=== PATIENT | male | born 1960 | race Caucasian/White ===

== ENCOUNTER 2017-07-10 19:11 | Inpatient (IN) | payer OTHER ==
[~2017-07-10] VITALS: Ht 167.6 cm; Wt 90.9 kg
[~2017-07-10 19:11] MED LIST: AMLO5TAB4 PO; GLIP5TAB13 PO; Metoprolol Tartrate PO; PRAV20TA5 PO
--- NOTE | 2017-07-10 19:20 | NUR ---
PT. AMBULATES TO ER BED 12
[2017-07-10 19:22] VITALS: BP 162/74
--- NOTE | 2017-07-10 19:54 | NUR ---
Patient being evaluated by at bedside.
--- NOTE | 2017-07-10 19:59 | NUR ---
57Y/M PT. PRESENTS TO ED WITH C/O ABDOMINAL PAIN X1 DAY. PT. STATES PAIN START TODAY AT EPIGASTRIUM, RADIATES TO BACK, NO N/V/D. HX. ESRD ON HD, HTN, DM, HIGH CHOLESTEROL. AAO X4, AMBULATORY WITH STEADY GAIT. RESPIRATIONS ROOM AIR, EVEN AND UNLABORED. SKIN WARM AND DRY, LT. FA AV FISTULA, ARCH CATH TO RT. JUGULAR VAIN. ABDOMEN FIRM, FLAT, HYPOACTIVE BS X4, C/O PAIN 06/11. VSS, ER MADE AWARE OF PT. STATUS.
[2017-07-10] MEDS ORDERED: NACL 0.9% 500 ML IV ONE (20:13)
[2017-07-10] MEDS ORDERED: KETOROLAC 30 MG/ML VIAL IVP ONE (20:15)
[2017-07-10] MEDS ORDERED: ONDANSETRON 4 MG/2 ML VIAL IVP ONE (20:15)
[2017-07-10 20:46] LABS: BASOPHILS # (AUTO) 0.1 K/uL (0.00-0.22); BASOPHILS % (AUTO) 1.1 % (0.0-2.0); EOSINOPHILS # (AUTO) 0.2 K/uL (0-0.4); EOSINOPHILS % (AUTO) 1.6 % (0.0-4.0); HEMATOCRIT 39.2 % (36-52); HEMOGLOBIN 13.2 g/dL (12.0-18.0); LYMPHOCYTES # (AUTO) 1.2 K/uL (2.0-11.5); LYMPHOCYTES % (AUTO) 10.9 % (20.5-51.1); MEAN CORPUSCULAR HEMOGLOBIN 31 pg (27-31); MEAN CORPUSCULAR HGB CONC 34 g/dL (33-37); MEAN CORPUSCULAR VOLUME 93 fL (80-94); MONOCYTES # (AUTO) 1.3 K/uL (0.8-1.0); MONOCYTES % (AUTO) 12.3 % (1.7-9.3); NEUTROPHILS # (AUTO) 8.1 K/uL (1.8-7.7); NEUTROPHILS % (AUTO) 74.1 % (42.2-75.2); PLATELET COUNT (AUTO) 181 K/uL (140-450); RED BLOOD CELL COUNT(AUTO) 4.24 MIL/uL (4.20-6.10); RED CELL DISTRIBUTION WIDTH 12.1 % (11.6-13.7); WHITE BLOOD COUNT (AUTO) 10.9 K/uL (4.8-10.8)
[2017-07-10] MEDS ORDERED: MORPHINE SULFATE 2 MG/ML SYR IVP ONE (21:05)
[2017-07-10 21:08] LABS: PROTHROMBIN TIME 10.5 secs (10.8-13.4)
[2017-07-10 21:14] LABS: ALBUMIN 4.2 g/dL (3.4-5.0); ANION GAP 17.6 (8-16); CARBON DIOXIDE 27.9 mmol/L (21-32); POTASSIUM 4.5 mmol/L (3.5-5.1); TOTAL BILIRUBIN 0.7 mg/dL (0.0-1.0)
[2017-07-10 21:16] LABS: CREATININE 12.2 mg/dL (0.7-1.3)
[2017-07-10] MEDS ORDERED: MORPHINE SULFATE 4 MG/ML SYR ONE (21:17)
[2017-07-10] MEDS ORDERED: PANTOPRAZOLE 40 MG INJ VIAL IVP ONE (21:20)
--- NOTE | 2017-07-10 21:41 | NUR ---
Patient appears to be resting comfortably in bed. Vital Signs within normal limits. Respirations even and unlabored.
[2017-07-10] MEDS ORDERED: ACETAMINOPHEN 325 MG TAB PO PRN (23:10)
[2017-07-10] MEDS ORDERED: ONDANSETRON 4 MG/2 ML VIAL IVP PRN (23:10)
[2017-07-10] MEDS ORDERED: MORPHINE SULFATE 4 MG/ML SYR IVP PRN (23:15)
[2017-07-10] MEDS ORDERED: DEXTROSE 50% 50 ML SYR IVP PRN (23:25)
[2017-07-10] MEDS ORDERED: INSULIN LISPRO SLIDING SCALE 100 UNITS/ML VIAL SUBQ PRN (23:25)
[2017-07-10 23:31] LABS: BARBITURATE, URINE NEG. ng/ml (NEG <=200); BENZODIAZEPINE, URINE NEG. ng/mL (NEG <=200); CANNABINOID, URINE NEG. ng/mL (NEG <=50); COCAINE, URINE NEG. ng/mL (NEG <=300); OPIATE, URINE NEG. ng/mL (NEG <=2000); PHENCYCLIDINE SCREEN,URINE NEG. ng/mL (NEG <=25)
[2017-07-10 23:38] LABS: FREE T4 (FREE THYROXINE) 1.02 ng/dL (0.76-1.46); MAGNESIUM 2.4 mg/dL (1.8-2.4); PHOSPHORUS 4.3 mg/dL (2.5-4.9); THYROID STIMULATING HORMONE 3.12 uIU/mL (0.34-3.74)
--- NOTE | 2017-07-10 23:38 | NUR ---
Patient will be admitted to care of . Admited to TELEMETRY. Will go to [id number]. Belongings list completed. Report to MARAL GONZALES.
[2017-07-10 23:40] VITALS: BP 117/72
--- NOTE | 2017-07-10 23:40 | NUR ---
Admitted from ER TO TELEMETRY UNIT, with chief complaint of EPIGASTRIC PAIN, 57 y/o ,Male, Cooperative, AWAKE, A/OX4, RESPIRATION EVEN AND UNLABORED. IV SALINE LOCK AT THE RIGHT FOREARM G18, PATENT AND INTACT, WITH DIALYSIS ACCESS RIGHT SUBCLAVIAN TUNNEL CATH AND LEFT FOREARM AV SHUNT WHICH IS NOT YET USE FOR DIALYSIS. STATED HE HAD EPIGASTRIC PAIN 7/10 DURING DIALYSIS AT [facility] TODAY, DIALYSIS NOT FINISHED BUT 1 LITER WAS OBTAINED. HEAD TO TOE ASSESSMENT DONE WITH CHARGE NURSE VALERIO, SKIN INTACT. PAIN IN THE ABDOMEN DESCRIBED "ONLY LITTLE" 1/10, WILL CALL NURSE WHEN PAIN INCREASES. oriented to call light, bed, phone,television, bathroom, smoking policy, visiting hours, procedures, ID bracelet on. Belongings list checked.
[2017-07-11] VITALS: BP 118/69
--- NOTE | 2017-07-11 | NUR ---
Patient's Plan of Care was discussed and reviewed with BRUSH WASHER: JANET BACA
[2017-07-11] MEDS ORDERED: MORPHINE SULFATE 4 MG/ML SYR IVP PRN (02:30)
[2017-07-11 04:30] VITALS: BP 113/74
[2017-07-11] MEDS: BLOOD GLUCOSE MONITORING 1 DEV DEV FS SCH ×4 (05:52→20:20)
[2017-07-11] MEDS ORDERED: DEXT 5% / NACL 0.45% 1,000 ML IV SCH (06:20)
[2017-07-11] MEDS: glipiZIDE 5 MG TAB PO SCH (06:23)
[2017-07-11] MEDS: HYDROcodone/APAP 7.5/325 MG 1 TAB PO PRN ×2 (06:27→20:22)
[2017-07-11 06:52] LABS: BASOPHILS # (AUTO) 0.1 K/uL (0.00-0.22); BASOPHILS % (AUTO) 0.6 % (0.0-2.0); EOSINOPHILS # (AUTO) 0.1 K/uL (0-0.4); EOSINOPHILS % (AUTO) 1.7 % (0.0-4.0); HEMATOCRIT 34.8 % (36-52); HEMOGLOBIN 11.9 g/dL (12.0-18.0); LYMPHOCYTES % (AUTO) 11.9 % (20.5-51.1); MEAN CORPUSCULAR HEMOGLOBIN 32 pg (27-31); MEAN CORPUSCULAR HGB CONC 34 g/dL (33-37); MEAN CORPUSCULAR VOLUME 94 fL (80-94); MONOCYTES # (AUTO) 0.9 K/uL (0.8-1.0); MONOCYTES % (AUTO) 11.2 % (1.7-9.3); NEUTROPHILS # (AUTO) 6.4 K/uL (1.8-7.7); NEUTROPHILS % (AUTO) 74.6 % (42.2-75.2); PLATELET COUNT (AUTO) 114 K/uL (140-450); RED BLOOD CELL COUNT(AUTO) 3.72 MIL/uL (4.20-6.10); RED CELL DISTRIBUTION WIDTH 12.4 % (11.6-13.7); WHITE BLOOD COUNT (AUTO) 8.5 K/uL (4.8-10.8)
[2017-07-11 07:17] LABS: CARBON DIOXIDE 27.1 mmol/L (21-32); POTASSIUM 5.1 mmol/L (3.5-5.1)
[2017-07-11 07:24] LABS: MAGNESIUM 2.4 mg/dL (1.8-2.4); PHOSPHORUS 4.4 mg/dL (2.5-4.9)
[2017-07-11 07:25] LABS: CREATININE 13.7 mg/dL (0.7-1.3)
--- NOTE | 2017-07-11 07:25 | NUR ---
REFUSED SEQUENTIALS, AMBULATING TO BR. CONDITION REMAIN STABLE. ENDORSED TO AM NURSE FOR CONTINUITY OF CARE.
--- NOTE | 2017-07-11 07:26 | NUR ---
RECEIVED REPORT FROM ARCHITECTURE CONSULTANT NURSE JANET AT BEDSIDE FOR CONTINUITY OF CARE. PT IS AWAKE AND ORIENTED. INTRODUCED SELF AND UPDATED BOARD. PT IS LYING COMFORTABLY IN BED RIGHT NOW. DR. ROMERO AND RESIDENTS CAME IN AND SAW PT. NO SIGNS OF DISTRESS. WILL CONTINUE TO MONITOR.
[2017-07-11 08:00] VITALS: BP 115/73
[2017-07-11] MEDS: DOCUSATE SODIUM 100 MG GELCAP PO SCH ×2 (09:15→20:21)
[2017-07-11] MEDS: amLODIPine 5 MG TAB PO SCH (09:15)
[2017-07-11] MEDS: METOPROLOL 50 MG TAB PO SCH ×2 (09:15→20:22)
[2017-07-11] MEDS: PANTOPRAZOLE 40 MG TABEC PO SCH (09:15)
[2017-07-11] MEDS: ATORVASTATIN 20 MG TAB PO SCH (09:15)
--- NOTE | 2017-07-11 09:20 | NUR ---
ADMINISTERED MORNING MEDICATIONS. PT TOLERATED WELL. DR. BRADY CAME IN AND SAW PT. NPO CANCELLED AND BREAKFAST TRAY OF [id number] DIET DELIVERED TO PT. SITTING UP NOW EATING BREAKFAST. NO SIGNS OF DISTRESS. PT DENIES ABD PAIN, DIARRHEA, OR VOMITING. BED IN LOW POSITION, WHEELS LOCKED. INSTRUCTED PT USE OF CALL LIGHT. PT VERBALIZED UNDERSTANDING. WILL CONTINUE TO MONITOR.
[2017-07-11] MEDS ORDERED: VITAMIN B COMPLEX W/C 1 TAB PO SCH (09:50)
[2017-07-11] MEDS ORDERED: VANCOMYCIN PER PHARMACY MC PRN (11:20)
[2017-07-11 12:00] VITALS: BP 122/75
[2017-07-11] MEDS ORDERED: cefTRIAXone 2,000 MG in DEXTROSE 5% 100 ML IV SCH (12:00)
[2017-07-11] MEDS ORDERED: VANCOMYCIN 1GM/DEXT 5% PREMIX 200 ML IV SCH (13:00)
--- NOTE | 2017-07-11 13:16 | NUR ---
STARTED ROCEPHIN IVPB. FLUSHED RIGHT IV FA 18G WITH 10ML NS. PT TOLERATED WELL. DENIES ABD PAIN, NAUSEA, DIARRHEA, OR VOMITING. NO COMPLAINTS AT THIS TIME. ASKED IF PT NEEDED ANYTHING RIGHT NOW, PT SAID NO. PLACED CALL LIGHT WITHIN REACH. WILL CONTINUE TO MONITOR.
[2017-07-11] MEDS: SODIUM CHLORIDE FLUSH 10 ML SYR IVF SCH ×2 (13:17→20:23)
--- NOTE | 2017-07-11 14:38 | NUR ---
ROCEPHIN IVPB FINISHED. NO S/SX OF REACTIONS NOTED. STARTED VANCOMYCIN 1GM IVPB DOSE. PT TOLERATING WELL. WILL CONTINUE TO MONITOR.
[2017-07-11 16:00] VITALS: BP 112/71
--- NOTE | 2017-07-11 19:07 | NUR ---
CALLED [facility] FOR DIALYSIS ORDER FOR [facility] AND MADE AWARE.
--- NOTE | 2017-07-11 19:10 | NUR ---
ENDORSED PT TO BOILER SERVICE TECHNICIAN NURSE JOHN AT BEDSIDE FOR CONTINUITY OF CARE. PT IS SITTING UP IN BED WATCHING TV IN STABLE CONDITION.
--- NOTE | 2017-07-11 19:20 | NUR ---
RECEIVED REPORT FROM DAY RN. PATIENT RESTING IN BED AND WATCHING TV, RESPIRATION EVEN AND UNLABORED, NO S/S OF DISTRESS NOTED, STATED ABDOMINAL PAIN 4/10 AT THIS TIME, INFORMED PATIENT THAT I WOULD GIVE HIM PAIN MEDICATION LATER. IV PATENT AND INTACT, CALL LIGHT WITHIN REACH, SAFETY MEASURE ENSURED, WILL CONTINUE TO MONITOR.
[2017-07-11 20:00] VITALS: BP 125/78
[2017-07-11] MEDS: cefTRIAXone 2,000 MG in DEXTROSE 5% 100 ML IV SCH (20:23)
--- NOTE | 2017-07-11 20:42 | NUR ---
DUE MEDICATION GIVEN, PATIENT TOLERATED WELL. NO S/S OF DISTRESS NOTED, WELL CONTINUE TO MONITOR.
--- NOTE | 2017-07-11 21:48 | NUR ---
DR. MATTA CAME AND EXAMINED THE PATIENT AT BEDSIDE. NO NEW ORDER RECEIVED AT THIS TIME.
--- NOTE | 2017-07-11 23:45 | NUR ---
PATIENT WAS SLEEPING IN BED, EASY TO AROUSE, VITAL SIGNS WITHIN NORMAL RANGE, NO S/S OF ACUTE DISTRESS NOTED, RESPIRATION EVEN AND UNLABORED, CALL LIGHT WITHIN REACH, SAFETY MEASURE ENSURED, WILL CONTINUE TO MONITOR.
[2017-07-12] VITALS: BP 103/72
--- NOTE | 2017-07-12 02:52 | NUR ---
PATIENT IS SLEEPING IN BED, NO S/S OF ACUTE DISTRESS NOTED, RESPIRATION EVEN AND UNLABORED, CALL LIGHT WITHIN REACH, SAFETY MEASURE ENSURED, WILL CONTINUE TO MONITOR.
[2017-07-12 04:00] VITALS: BP 109/60
--- NOTE | 2017-07-12 04:05 | NUR ---
NO CHANGE IN CONDITION, PATIENT WAS SLEEPING IN BED, EASY TO AROUSE, NO S/S OF ACUTE DISTRESS NOTED, RESPIRATION EVEN AND UNLABORED, CALL LIGHT WITHIN REACH, SAFETY MEASURE ENSURED, WILL CONTINUE TO MONITOR.
[2017-07-12] MEDS: SODIUM CHLORIDE FLUSH 10 ML SYR IVF SCH ×3 (04:06→20:41)
[2017-07-12] MEDS: glipiZIDE 5 MG TAB PO SCH (05:35)
--- NOTE | 2017-07-12 05:44 | NUR ---
BS 42, PATIENT IS ASYMPTOMATIC, AWAKE ALERT ORIENTED X4, NO S/S OF DISTRESS NOTED, PATIENT STATED," I FEEL OKAY." OFFERED PATIENT ONE BOX OF APPLE JUICE, AND ADMINISTERED DEXTROSE 50% ORDERED, DUE MEDICATION GLIPIZIDE IS HELD, WILL RECHECK BLOOD SUGAR 15 MINUTES LATER.
--- NOTE | 2017-07-12 06:08 | NUR ---
BS 133. PATIENT RESTING IN BED, NO S/S OF DISTRESS NOTED, RESPIRATION EVEN AND UNLABORED, WILL CONTINUE TO MONITOR.
[2017-07-12 06:16] LABS: BASOPHILS # (AUTO) 0.3 K/uL (0.00-0.22); BASOPHILS % (AUTO) 2.4 % (0.0-2.0); EOSINOPHILS # (AUTO) 0.3 K/uL (0-0.4); EOSINOPHILS % (AUTO) 2.4 % (0.0-4.0); HEMATOCRIT 33.6 % (36-52); LYMPHOCYTES # (AUTO) 1.3 K/uL (2.0-11.5); LYMPHOCYTES % (AUTO) 10.2 % (20.5-51.1); MEAN CORPUSCULAR HEMOGLOBIN 31 pg (27-31); MEAN CORPUSCULAR HGB CONC 33 g/dL (33-37); MEAN CORPUSCULAR VOLUME 94 fL (80-94); MONOCYTES # (AUTO) 1.2 K/uL (0.8-1.0); MONOCYTES % (AUTO) 9.4 % (1.7-9.3); NEUTROPHILS # (AUTO) 9.4 K/uL (1.8-7.7); NEUTROPHILS % (AUTO) 75.6 % (42.2-75.2); PLATELET COUNT (AUTO) 137 K/uL (140-450); RED BLOOD CELL COUNT(AUTO) 3.59 MIL/uL (4.20-6.10); RED CELL DISTRIBUTION WIDTH 12.5 % (11.6-13.7); WHITE BLOOD COUNT (AUTO) 12.4 K/uL (4.8-10.8)
[2017-07-12] MEDS: BLOOD GLUCOSE MONITORING 1 DEV DEV FS SCH ×4 (06:33→20:41)
[2017-07-12 06:38] LABS: MAGNESIUM 2.5 mg/dL (1.8-2.4); PHOSPHORUS 5.7 mg/dL (2.5-4.9)
[2017-07-12 06:40] LABS: ANION GAP 18.1 (8-16); CARBON DIOXIDE 24.5 mmol/L (21-32); POTASSIUM 4.6 mmol/L (3.5-5.1)
[2017-07-12 06:47] LABS: CREATININE 15.7 mg/dL (0.7-1.3)
[2017-07-12] MEDS ORDERED: HEPARIN PER PHARMACY MC PRN (07:20)
--- NOTE | 2017-07-12 07:20 | NUR ---
ENDORSED PLAN OF CARE TO DAY RN. PATIENT RESTING IN BED, IN STABLE CONDITION. NO S/S OF DISTRESS.
--- NOTE | 2017-07-12 07:21 | NUR ---
RECEIVED REPORT FROM ARMORED CABLE MACHINE OPERATOR NURSE JOHN AT BEDSIDE FOR CONTINUITY OF CARE. PT IS AWAKE AND ORIENTED. INTRODUCED SELF AND UPDATED BOARD. NO SIGNS OF DISTRESS. DIALYSIS NURSE ARRIVED. WILL CONTINUE TO MONITOR.
[2017-07-12 08:00] VITALS: BP 105/67
[2017-07-12 08:00] LABS: PROTHROMBIN TIME 10.2 secs (10.8-13.4)
[2017-07-12] MEDS: cefTRIAXone 2,000 MG in DEXTROSE 5% 100 ML IV SCH ×2 (08:04→20:55)
[2017-07-12] MEDS: PANTOPRAZOLE 40 MG TABEC PO SCH (08:04)
[2017-07-12] MEDS: CALCIUM ACETATE 667 MG TAB PO SCH ×2 (08:04→17:00)
[2017-07-12] MEDS: DOCUSATE SODIUM 100 MG GELCAP PO SCH ×2 (08:04→20:40)
[2017-07-12] MEDS: VITAMIN B COMPLEX W/C 1 TAB PO SCH (08:04)
[2017-07-12] MEDS: ATORVASTATIN 20 MG TAB PO SCH (08:04)
[2017-07-12] MEDS: METOPROLOL 50 MG TAB PO SCH ×2 (08:05→20:40)
[2017-07-12] MEDS: amLODIPine 5 MG TAB PO SCH (08:05)
--- NOTE | 2017-07-12 08:12 | NUR ---
ADMINISTERED MEDS. HELD BP MEDS DUE TO PT GETTING DIALYSIS. PT HAS NO COMPLAINTS AT THIS TIME. WILL CONTINUE TO MONITOR.
[2017-07-12 12:00] VITALS: BP 126/69
[2017-07-12] MEDS: hePARIN / DEXT 5% PREMIX 250 ML IV SCH ×2 (13:00→20:39)
--- NOTE | 2017-07-12 13:00 | NUR ---
ADMINISTERED HEPARIN BOLUS PER PROTOCOL. HEPARIN DRIP AT 13ML/HR.
[2017-07-12] MEDS ORDERED: VANCOMYCIN 1GM/DEXT 5% PREMIX 200 ML IV SCH (15:00)
--- NOTE | 2017-07-12 15:50 | NUR ---
CHECKED ON PT IN ROOM. TECH WITH PT GETTING ULTRASOUND DONE RIGHT NOW.
[2017-07-12 16:00] VITALS: BP 136/72
--- NOTE | 2017-07-12 17:00 | NUR ---
CHECKED PT'S BS WAS 53. PULLED DEXTROSE 50% IV TO ADMINISTER. PT REFUSED MED. STATED HE WANTED TO EAT FIRST AND WAIT TILL DINNER TRAY COMES. GAVE PT ORANGE JUICE AND GRAM CRACKERS. NO SIGNS OF DISTRESS. WILL RECHECK BS.
--- NOTE | 2017-07-12 18:31 | NUR ---
PT DONE EATING DINNER TRAY. BS 171.
--- NOTE | 2017-07-12 19:15 | NUR ---
ENDORSED PT TO MOTORBOAT MECHANIC INBOARD/OUTBOARD NURSE FOR CONTINUITY OF CARE. PT IN STABLE CONDITION.
--- NOTE | 2017-07-12 19:20 | NUR ---
RECEIVED REPORT FROM DAY RN, PATIENT RESTING IN BED, NO S/S OF DISTRESS NOTED, RESPIRATION EVEN AND UNLABORED, DENIES PAIN AT THIS TIME. IV PATENT AND INTACT, INFUSING HEPARIN DRIP AT 1300 UNITS/HR, CALL LIGHT WITHIN REACH, SAFETY MEASURE ENSURED, WILL CONTINUE TO MONITOR.
[2017-07-12 20:00] VITALS: BP 130/61
--- NOTE | 2017-07-12 21:02 | NUR ---
DUE MEDICATION GIVEN, PATIENT TOLERATED WELL, NO S/S OF DISTRESS NOTED, RESPIRATION EVEN AND UNLABORED, WILL CONTINUE TO MONITOR.
--- NOTE | 2017-07-12 23:53 | NUR ---
PATIENT WAS SLEEPING, BUT EASY TO AROUSE, NO S/S OF DISTRESS NOTED, RESPIRATION EVEN AND UNLABORED, VITAL SIGNS WITHIN NORMAL RANGE, CALL LIGHT WITHIN REACH, SAFETY MEASURE ENSURED, WILL CONTINUE TO MONITOR.
[2017-07-13] VITALS: BP 116/78
--- NOTE | 2017-07-13 01:26 | NUR ---
NO CHANGE IN CONDITION, PATIENT IS SLEEPING AT THIS TIME. RESPIRATION EVEN AND UNLABORED, CALL LIGHT WITHIN REACH, SAFETY MEASURE ENSURED, WILL CONTINUE TO MONITOR.
[2017-07-13 03:59] VITALS: BP 123/74
--- NOTE | 2017-07-13 04:04 | NUR ---
PATIENT WAS SLEEPING, BUT EASY TO AROUSE, RESPIRATION EVEN AND UNLABORED, VITAL SIGNS WITHIN NORMAL RANGE, CALL LIGHT WITHIN REACH, SAFETY MEASURE ENSURED, WILL CONTINUE TO MONITOR.
[2017-07-13] MEDS: SODIUM CHLORIDE FLUSH 10 ML SYR IVF SCH ×3 (04:28→21:25)
[2017-07-13] MEDS: HYDROcodone/APAP 7.5/325 MG 1 TAB PO PRN (05:28)
--- NOTE | 2017-07-13 05:30 | NUR ---
PATIENT STATED," I HAVE PAIN OVER MY STOMACH AREA." UPON ASSESSMENT, PAIN LEVEL 5/10, NORCO GIVEN ORDERED, WILL CONTINUE TO MONITOR.
[2017-07-13 05:59] LABS: BASOPHILS # (AUTO) 0.1 K/uL (0.00-0.22); BASOPHILS % (AUTO) 1.4 % (0.0-2.0); EOSINOPHILS # (AUTO) 0.3 K/uL (0-0.4); EOSINOPHILS % (AUTO) 2.7 % (0.0-4.0); HEMATOCRIT 33.5 % (36-52); HEMOGLOBIN 10.9 g/dL (12.0-18.0); LYMPHOCYTES # (AUTO) 1.4 K/uL (2.0-11.5); MEAN CORPUSCULAR HEMOGLOBIN 31 pg (27-31); MEAN CORPUSCULAR HGB CONC 33 g/dL (33-37); MEAN CORPUSCULAR VOLUME 93 fL (80-94); MONOCYTES # (AUTO) 1.2 K/uL (0.8-1.0); MONOCYTES % (AUTO) 12.3 % (1.7-9.3); NEUTROPHILS # (AUTO) 6.7 K/uL (1.8-7.7); NEUTROPHILS % (AUTO) 69.6 % (42.2-75.2); PLATELET COUNT (AUTO) 142 K/uL (140-450); RED BLOOD CELL COUNT(AUTO) 3.58 MIL/uL (4.20-6.10); RED CELL DISTRIBUTION WIDTH 12.4 % (11.6-13.7); WHITE BLOOD COUNT (AUTO) 9.7 K/uL (4.8-10.8)
[2017-07-13] MEDS: glipiZIDE 5 MG TAB PO SCH (06:12)
[2017-07-13 06:22] LABS: ANION GAP 15.7 (8-16); CARBON DIOXIDE 25.1 mmol/L (21-32); POTASSIUM 4.8 mmol/L (3.5-5.1)
[2017-07-13 06:24] LABS: CREATININE 12.7 mg/dL (0.7-1.3)
[2017-07-13 06:25] LABS: MAGNESIUM 2.1 mg/dL (1.8-2.4); PHOSPHORUS 5.9 mg/dL (2.5-4.9)
[2017-07-13] MEDS: BLOOD GLUCOSE MONITORING 1 DEV DEV FS SCH ×4 (06:40→20:53)
--- NOTE | 2017-07-13 06:41 | NUR ---
PATIENT IS SLEEPING AT THIS TIME, NO S/S OF DISTRESS NOTED, RESPIRATION EVEN AND UNLABORED, CALL LIGHT WITHIN REACH, SAFETY MEASURE ENSURED, WILL CONTINUE TO MONITOR.
--- NOTE | 2017-07-13 07:38 | NUR ---
ENDORSED PLAN OF CARE TO DAY RN, PATIENT IS IN STABLE CONDITION.
--- NOTE | 2017-07-13 07:40 | NUR ---
RECEIVED PATIENT REPORT FROM NIGHT NURSE. PT IS AMB ON UNIT WITH STEADY GAIT. PT IS AAOX4 AND SHOWS NO S/S OF ACUTE DISTRESS ON ROOM AIR. PT DENIES PAIN AND SOB. ON TELE MONITOR. TWO IV'S NOTED ON THE LEFT FOREARM SL, ALSO RIGHT UPPER CHEST AB CATH. SKIN IS INTACT. BED IN LOW POSITION WITH CALL LIGHT WITHIN REACH. PT WAS EXPLAINED POC FOR TODAY AND VERBALIZED UNDERSTANDING. WILL CONTINUE TO MONITOR.
[2017-07-13 08:00] VITALS: BP 123/69
[2017-07-13] MEDS ORDERED: LIDOCAINE VISCOUS 2% 20 ML UDC PO SCH (08:15)
[2017-07-13] MEDS ORDERED: DICYCLOMINE HCL LIQUID 10 MG/5 ML UDC PO SCH (08:15)
[2017-07-13] MEDS ORDERED: ALUMINUM HYD/MAG/SIMETHICONE 30 ML UDC PO SCH (08:15)
[2017-07-13] MEDS: CALCIUM ACETATE 667 MG TAB PO SCH ×3 (08:35→16:18)
[2017-07-13] MEDS: LACTOBACILLUS RHAMNOSUS GG 1 EACH CAP PO SCH (08:36)
[2017-07-13] MEDS: METOPROLOL 50 MG TAB PO SCH ×2 (08:36→20:37)
[2017-07-13] MEDS: DOCUSATE SODIUM 100 MG GELCAP PO SCH ×2 (08:37→20:37)
[2017-07-13] MEDS: PANTOPRAZOLE 40 MG TABEC PO SCH ×2 (08:37→20:37)
[2017-07-13] MEDS: amLODIPine 5 MG TAB PO SCH (08:37)
[2017-07-13] MEDS: VITAMIN B COMPLEX W/C 1 TAB PO SCH (08:37)
[2017-07-13] MEDS: ATORVASTATIN 20 MG TAB PO SCH (08:37)
[2017-07-13] MEDS: cefTRIAXone 2,000 MG in DEXTROSE 5% 100 ML IV SCH ×2 (08:38→20:38)
--- NOTE | 2017-07-13 08:40 | NUR ---
ADMINISTERED SCHEDULED MEDICATIONS. PT TOLERATED ACTIVITY WELL. IV ABX INFUSING WELL ON THE R FA. THE BED IN LOW POSITION WITH CALL LIGHT WITHIN REACH. PT'S NEEDS MET AT THIS TIME. WILL CONTINUE TO MONITOR.
--- NOTE | 2017-07-13 09:10 | NUR ---
RECEIVED BEDSIDE REPORT FROM DAY SHIFT NURSE, KENDRA LOGAN RESTING, STABLE, NO DISTRESS NOTED, AAOX4, IV TO THE R FA 18 G SL, DRESSING CLEAN DRY AND INTACT, IV PATENT, PT REPORTED HAVING NO PAIN, ALL SAFETY PRECAUTION MET, INITIAL ASSESSMENT DONE. FAMILY BY BEDSIDE, CALL LIGHT WITHIN REACH. WILL CONTINUE TO MONITOR. Addendum: 07/13/17 at 2125 by Jazmine Diamond RN WRONG TIME
--- NOTE | 2017-07-13 11:30 | NUR ---
PT SHOWS NO S/S OF ACUTE DISTRESS ON ROOM AIR. ADMINISTERED SCHEDULED MEDICATIONS. PT'S NEEDS MET AT THIS TIME. THE BED IS IN LOW POSITION WITH CALL LIGHT WITHIN REACH.
[2017-07-13 12:00] VITALS: BP 123/77
--- NOTE | 2017-07-13 13:10 | NUR ---
PT SHOWS NO S/S OF ACUTE DISTRESS ON ROOM AIR. THE BED IS IN LOW POSITION WITH CALL LIGHT WITHIN REACH.
--- NOTE | 2017-07-13 14:30 | NUR ---
PT STATED HE VOMITED AFTER EATING LUNCH. PT WAS GIVEN ZOFRAN 4 MG IVP.
--- NOTE | 2017-07-13 15:23 | NUR ---
PT IS AAOX4 AND DENIES PAIN AND SOB. PT IS AMB AROUND UNIT WITH STEADY GAIT.
[2017-07-13 16:00] VITALS: BP 136/80
--- NOTE | 2017-07-13 16:19 | NUR ---
ADMINISTERED SCHEDULED MEDICATIONS. PT TOLERATED WELL. PT DENIES NAUSEA VOMITING AND ABD PAIN. WILL CONTINUE TO MONITOR.
--- NOTE | 2017-07-13 17:00 | NUR ---
RECEIVED ORDERS FOR PT IS OKAY TO SHOWER AND TAKE TELE BOX OFF.
--- NOTE | 2017-07-13 17:10 | NUR ---
PT IS TAKING A SHOWER. PT IS STABLE.
--- NOTE | 2017-07-13 19:09 | NUR ---
PT REPORT GIVEN TO NIGHT NURSE. PT ENDORSED IN STABLE CONDITION.
--- NOTE | 2017-07-13 19:10 | NUR ---
RECEIVED BEDSIDE REPORT FROM DAY SHIFT NURSE, DESMOND, KENDRA RESTING, STABLE, NO DISTRESS NOTED, AAOX4, IV TO THE R FA 18 G SL, DRESSING CLEAN DRY AND INTACT, IV PATENT, PT REPORTED HAVING NO PAIN, ALL SAFETY PRECAUTION MET, INITIAL ASSESSMENT DONE. FAMILY BY BEDSIDE, CALL LIGHT WITHIN REACH. WILL CONTINUE TO MONITOR.
[2017-07-13 20:00] VITALS: BP 136/80
--- NOTE | 2017-07-13 20:50 | NUR ---
DUE MEDICATION GIVEN, PT TOLERATED WELL, REPORTED HAVING NO PAIN, NO DISTRESS NOTED, CALL LIGHT WITHIN REACH, WILL CONTINUE TO MONITOR.
[2017-07-14] VITALS: BP 122/72
--- NOTE | 2017-07-14 00:01 | NUR ---
CHECKED ON PT, TOOK VS, PT STABLE NO DISTRESS NOTED, REPORTED HAVING NO PAIN, CALL LIGHT WITHIN REACH, WILL CONTINUE TO MONITOR.
--- NOTE | 2017-07-14 02:49 | NUR ---
CHECKED ON PT, PT SLEEPING, NO DISTRESS NOTED, CALL LIGHT WITHIN REACH, WILL CONTINUE TO MONITOR.
[2017-07-14 04:06] VITALS: BP 124/74
--- NOTE | 2017-07-14 04:13 | NUR ---
CHECKED ON PT, PT SLEEPING, EASY TO AROUSE, TOOK V/S, PT STABLE, V/S WNL, NO DISTRESS NOTED, CALL LIGHT WITHIN REACH, WILL CONTINUE TO MONITOR.
[2017-07-14] MEDS: SODIUM CHLORIDE FLUSH 10 ML SYR IVF SCH (04:47)
[2017-07-14 06:25] LABS: BASOPHILS # (AUTO) 0.1 K/uL (0.00-0.22); BASOPHILS % (AUTO) 1.4 % (0.0-2.0); EOSINOPHILS # (AUTO) 0.3 K/uL (0-0.4); EOSINOPHILS % (AUTO) 3.2 % (0.0-4.0); HEMATOCRIT 31.7 % (36-52); HEMOGLOBIN 10.7 g/dL (12.0-18.0); LYMPHOCYTES # (AUTO) 1.3 K/uL (2.0-11.5); LYMPHOCYTES % (AUTO) 13.7 % (20.5-51.1); MEAN CORPUSCULAR HEMOGLOBIN 32 pg (27-31); MEAN CORPUSCULAR HGB CONC 34 g/dL (33-37); MEAN CORPUSCULAR VOLUME 93 fL (80-94); MONOCYTES # (AUTO) 1.1 K/uL (0.8-1.0); MONOCYTES % (AUTO) 11.5 % (1.7-9.3); NEUTROPHILS # (AUTO) 6.6 K/uL (1.8-7.7); NEUTROPHILS % (AUTO) 70.2 % (42.2-75.2); PLATELET COUNT (AUTO) 163 K/uL (140-450); RED CELL DISTRIBUTION WIDTH 12.4 % (11.6-13.7); WHITE BLOOD COUNT (AUTO) 9.4 K/uL (4.8-10.8)
[2017-07-14] MEDS: BLOOD GLUCOSE MONITORING 1 DEV DEV FS SCH ×2 (06:34→11:30)
[2017-07-14 06:40] LABS: ANION GAP 21.3 (8-16); CARBON DIOXIDE 22.2 mmol/L (21-32); POTASSIUM 5.5 mmol/L (3.5-5.1)
--- NOTE | 2017-07-14 06:40 | NUR ---
PT AMBULATES IN THE HALLWAY, TOLERATED WELL, NO DISTRESS NOTED, WILL CONTINUE TO MONITOR.
[2017-07-14 06:46] LABS: CREATININE 14.7 mg/dL (0.7-1.3)
[2017-07-14 06:49] LABS: ALBUMIN 2.9 g/dL (3.4-5.0); PHOSPHORUS 6.4 mg/dL (2.5-4.9)
--- NOTE | 2017-07-14 07:10 | NUR ---
RECEIVED PATIENT REPORT FROM NIGHT NURSE. PT AAOX4 AND SHOWED NO S/S OF ACUTE DISTRESS ON ROOM AIR. PT DENIES PAIN AND SOB. ON TELE MONITOR. IV NOTED ON THE RIGHT FA, PATENT, INTACT, AND INFUSING WELL. RIGHT UPPER CHEST AB CATH NOTED. SKIN IS INTACT. AV FISTULA NOTED ON THE LEFT ARM. THRILL AND BRUIT PRESENTED. PT STATED THAT HE HAD BM YESTERDAY AFTERNOON. BED IN LOW POSITION, CALL LIGHT WITHIN REACH. WILL CONTINUE TO MONITOR.
[2017-07-14] MEDS: glipiZIDE 5 MG TAB PO SCH (07:11)
--- NOTE | 2017-07-14 07:20 | NUR ---
GAVE BEDSIDE REPORT TO DAY SHIFT NURSE, ROSANNE RN. PT STABLE NO DISTRESS NOTED, CALL LIGHT WITHIN REACH.
[2017-07-14] MEDS ORDERED: SODIUM POLYSTYRENE 15 GM/60 ML UDBTL PO SCH ×3 (09:21→13:10)
--- NOTE | 2017-07-14 09:31 | NUR ---
RECEIVED PATIENT REPORT FROM NIGHT NURSE. PT AAOX4 AND SHOWED NO S/S OF ACUTE DISTRESS ON ROOM AIR. PT DENIES PAIN AND SOB. ON TELE MONITOR. IV NOTED ON THE RIGHT FA, PATENT, INTACT, AND INFUSING WELL. RIGHT UPPER CHEST AB CATH NOTED. SKIN IS INTACT. AV FISTULA NOTED ON THE LEFT ARM. THRILL AND BRUIT PRESENTED. PT STATED THAT HE HAD BM YESTERDAY AFTERNOON. BED IN LOW POSITION, CALL LIGHT WITHIN REACH. WILL CONTINUE TO MONITOR. Addendum: 07/14/17 at 1003 by Nader Chavez RN PLEASE DISCARD THIS NOTE. WRONG TIME.
[2017-07-14] MEDS: CALCIUM ACETATE 667 MG TAB PO SCH ×2 (09:39→12:03)
[2017-07-14] MEDS: METOPROLOL 50 MG TAB PO SCH (09:40)
[2017-07-14] MEDS: LACTOBACILLUS RHAMNOSUS GG 1 EACH CAP PO SCH (09:41)
[2017-07-14] MEDS: DOCUSATE SODIUM 100 MG GELCAP PO SCH (09:41)
[2017-07-14] MEDS: PANTOPRAZOLE 40 MG TABEC PO SCH (09:41)
[2017-07-14] MEDS: VITAMIN B COMPLEX W/C 1 TAB PO SCH (09:41)
[2017-07-14 09:42] VITALS: BP 131/77
[2017-07-14] MEDS: amLODIPine 5 MG TAB PO SCH (09:42)
[2017-07-14] MEDS: ATORVASTATIN 20 MG TAB PO SCH (09:42)
[2017-07-14] MEDS: cefTRIAXone 2,000 MG in DEXTROSE 5% 100 ML IV SCH (09:44)
--- NOTE | 2017-07-14 10:30 | NUR ---
IV ON THE RIGHT FA IS LEAKING, IV DC'ED, TIP INTACT. STUDENT W/ [facility] INTRUCTOR STARTED A NEW IV ON THE RIGHT WRIST, GAUGE 20, SECURED W/ TAPE. IV PATENT, FLUSHED W/ NS. PT TOLERATED WELL.
--- NOTE | 2017-07-14 11:20 | NUR ---
PT'S FAMILY ARE AT THE BEDSIDE. DR FLORES AND DR. DIEHL HAS SEEN PT AND DISCUSSED THE PLAN FOR THE PT. WILL CONTINUE TO MONITOR.
--- NOTE | 2017-07-14 11:23 | NUR ---
07/14/17 RD INITIAL ASSESSMENT COMPLETED PLEASE REFER TO NUTRITION ASSESSMENT UNDER CARE ACTIVITY FOR ESTIMATED NUTRITIONAL NEEDS. RD RECOMMENDATIONS: 1. CONTINUE CCHO 60 GM, RENAL STANDARD DIET TOLERATED AND MEDICALLY APPROPRIATE. -NOTE PT WITH GOOD APPETITE, ADEQUATELY MEETING ~88% ~88% OF ESTIMATED KCAL NEEDS AND ~98% OF ESTIMATED PROTEIN NEEDS WITH ~97% PO INTAKE. 2. RD WILL F/U 7 DAYS; LOW RISK. PERCY WILKERSON, RD
[2017-07-14 12:00] VITALS: BP 143/77
[2017-07-14] MEDS ORDERED: OMEP40EC14 PO (12:20)
--- NOTE | 2017-07-14 13:29 | NUR ---
PT DISCHARGED PER MD ORDER. DISCHARGE INSTRUCTION AND MEDICATION TEACHING GIVEN. IV DC'ED, TIP INTACT, PRESSURE APPLIED. PT A/O X4 AND DENIED PAIN AT THIS TIME. PT LEFT IN STABLE CONDITION AND WITH ALL HIS BELONGING.
== END 2017-07-14 13:30 | disposition home or self-care (01) | DRG 438 ==
LOC: MED 19:11 → MTU 23:12
PROVIDERS: ADMIT Family Medicine; ATTEND Family Medicine
PROC: 5A1D70Z Performance of Urinary Filtration, Intermittent, Less than 6 Hours Per Day (ICD-10-PCS; principal; 2017-07-12)
DX: K85.90 Acute pancreatitis without necrosis or infection, unspecified (principal); N18.6 End stage renal disease; N17.0 Acute kidney failure with tubular necrosis; D68.59 Other primary thrombophilia; E11.22 Type 2 diabetes mellitus with diabetic chronic kidney disease; D69.6 Thrombocytopenia, unspecified; E44.0 Moderate protein-calorie malnutrition; I12.0 Hypertensive chronic kidney disease with stage 5 chronic kidney disease or end stage renal disease; E87.1 Hypo-osmolality and hyponatremia; K21.9 Gastro-esophageal reflux disease without esophagitis; I35.1 Nonrheumatic aortic (valve) insufficiency; D72.829 Elevated white blood cell count, unspecified; K76.0 Fatty (change of) liver, not elsewhere classified; E83.39 Other disorders of phosphorus metabolism; E83.41 Hypermagnesemia; D64.9 Anemia, unspecified; E66.8 Other obesity; F10.21 Alcohol dependence, in remission; E83.51 Hypocalcemia; E87.5 Hyperkalemia; I35.8 Other nonrheumatic aortic valve disorders; K57.90 Diverticulosis of intestine, part unspecified, without perforation or abscess without bleeding; E78.00 Pure hypercholesterolemia, unspecified; Z99.2 Dependence on renal dialysis; Z87.81 Personal history of (healed) traumatic fracture; Z83.3 Family history of diabetes mellitus; Z86.19 Personal history of other infectious and parasitic diseases; Z68.32 Body mass index [BMI] 32.0-32.9, adult; Z82.49 Family history of ischemic heart disease and other diseases of the circulatory system; Z79.899 Other long term (current) drug therapy
CPT/HCPCS: 36415; 71010; 76705; 80048; 80053; 80202; 80305; 82040; 82150; 82948; 83036; 83690; 83735; 83880; 84100; 84439; 84443; 84484; 84550; 85025; 85610; 85730; 87040; 87081; 93005; 93925; 93970; 93971; 96361; 96374; 96375; 99285; C9113; J0696; J1644; J1815; J1885; J2270; J2405; J3370; J7030; J7060; Q0092